=== PATIENT | female | born 1980 | race Caucasian/White ===

== ENCOUNTER → 2019-06-15 08:05 | Outpatient (CLI) | payer OTHER, SELFPAY ==
--- NOTE | 2019-06-15 | DI.MG.S_ITS ---
BILATERAL DIGITAL SCREENING MAMMOGRAM 3D/2D WITH CAD: 06/15/2019 CLINICAL: Baseline exam. Routine screening. No prior exams were available for comparison. The tissue of both breasts is heterogeneously dense. This may lower the sensitivity of mammography. Current study was also evaluated with a Computer Aided Detection (CAD) system. There is a benign intramammary node in the right breast. No significant masses, calcifications, or other findings are seen in either breast. IMPRESSION: There is no mammographic evidence of malignancy. A 1 year screening mammogram is recommended. This exam was interpreted at Station ID: [id number]. NOTE: For mammograms, a report in lay terms will be sent to the patient. Approximately 15% of breast malignancies will not be visualized mammographically. In the management of a palpable breast mass, a negative mammogram must not discourage biopsy of a clinically suspicious lesion. Electronically Signed By: John brown/leonides:06/15/2019 08:35:32 letter sent: Normal Exam ACR BI-RADS Category 2: Benign Finding(s) 3342F
== END ==
PROVIDERS: PCP Family Medicine; Visit Provider Family Medicine
DX: Z12.31 Encounter for screening mammogram for malignant neoplasm of breast (principal)
CPT/HCPCS: 77063; 77067

== ENCOUNTER 2019-09-28 19:44 | Emergency (ER) | payer OTHER, SELFPAY ==
[2019-09-28 20:01] VITALS: BP 154/94; PULSE 87; RESP 20; TEMP 36; O2SAT 99
--- NOTE | 2019-09-28 20:09 | DI.RAD.S_ITS ---
PROCEDURE: XR ANKLE RT MIN 3V INDICATIONS: rolled ankle TECHNIQUE: 3 views of the ankle were acquired. COMPARISON: None. FINDINGS: Bones: Acute oblique fracture through distal fibular shaft is seen with up to 2 mm diastases and fracture site.. Ankle mortise is normally aligned. No suspicious bony lesions. Soft tissues: Marked soft tissue swelling over lateral malleolus is seen. No tibiotalar joint effusion. Achilles tendon appears normal. IMPRESSION: Acute oblique fracture through distal fibular shaft with overlying soft tissue swelling. Ankle mortise is congruent. Dictated by: Perez Loco M.D. on 09/28/2019 at 20:23 Approved by: Perez Loco M.D. on 09/28/2019 at 20:29
[2019-09-28] MEDS: MORPHINE 4 MG/ML INJ IM (20:35)
[2019-09-28] MEDS: ONDANSETRON 4 MG ODT SL (21:18)
--- NOTE | 2019-09-28 21:26 | ED.LOWEXIN ---
HPI - Extremity Injury (Lower) General Chief Complaint: Extremity Injury, Lower Stated Complaint: rolled right ankle Time Seen by Provider: 09/28/19 21:26 Source: patient Mode of arrival: Ambulatory Limitations: no limitations History of Present Illness HPI Narrative: 39-year-old female comes to the emergency department with complaint of pain in her right ankle. Patient states she stepped down she was distracted and not looking. And had pain in her right ankle. She did fall forward but denies any other injuries. Patient states she has pain on the lateral or outside of her ankle. Some swelling and bruising. Denies any numbness tingling or weakness. She does have pain with any attempt at weight-bearing. She denies any medical issues besides 5 prior C-sections. Denies any allergies to medications. No tobacco, no regular alcohol or illicit. Related Data Previous Rx's Medication Instructions Recorded sumatriptan succinate 50 mg tablet 50 mg PO ONCE PRN #30 tab 07/05/19 ondansetron HCl [Zofran] 4 mg PO Q6H PRN #20 tab 09/28/19 oxycodone-acetaminophen [Percocet] 1 tab PO Q6H PRN #20 tab 09/28/19 Allergies Allergy/AdvReac Type Severity Reaction Status Date / Time adhesive Allergy Severe EXTENSIVE Verified 06/09/19 08:31 BLISTERING, RASH chlorhexidine Allergy Severe RASH Verified 06/09/19 08:31 Review of Systems Review of Systems ROS Unobtainable: All systems reviewed & are unremarkable except as noted in HPI and below Patient History Medical History Migraines (Chronic ~2017) Surgical History Anesthesia (Resolved) History of cholecystectomy (Resolved ~05/2016) History of third molar tooth extraction Status post delivery Status post delivery (11/10/14) Status post dilation and curettage (~2003) Social History marital status: number of children: 5 household members: family lives independently: Yes education level: college (Bachelor's Degree) occupational status: unemployed Smoking Status: Never smoker alcohol intake: current (rare, Holidays) substance use type: does not use Smoking Status: Never smoker Exam Narrative Exam Narrative: GENERAL: Alert and oriented x three, well-nourished, well-appearing female in moderate distress. HEENT: Head normocephalic, atraumatic, EOMI, pupils reactive, face symmetric, moist mucous membranes NECK: Supple, full range of motion CARDIOVASCULAR: Regular rate and rhythm without murmurs, rubs or gallops. RESPIRATORY: Breath sounds equal bilaterally, no wheezes rales or rhonchi. ABDOMEN: Soft, nontender. Normoactive bowel sounds all 4 quadrants. No guarding or rebound, rigidity, no mass EXTREMITIES: Decreased range of motion of the right ankle patient has tenderness over the lateral malleoli with ecchymosis, and mild deformity. Patient has normal sensation throughout her foot. No bony tenderness of the foot itself her toes. No bony tenderness of the upper leg. 2+ dorsalis pedis. No clubbing or edema. Neurovascularly intact NEUROLOGICAL: Cranial nerves II through XII grossly intact. Moving all extremities SKIN: Warm, dry, no petechiae, no rashes or lesions. Initial Vital Signs Initial Vital Signs: Vital Signs Temperature 96.8 F L 09/28/19 20:01 Pulse Rate 87 09/28/19 20:01 Respiratory Rate 20 09/28/19 20:01 Blood Pressure 154/94 H 09/28/19 20:01 Pulse Oximetry 99 09/28/19 20:01 Course Orders Ordered: ED Orders 09/28/19 20:09 XR ankle RT min 3V Stat Discontinued Medications Hydromorphone HCl (Dilaudid) 0.5 mg IM NOW ONE Stop: 09/28/19 21:39 Last Admin: 09/28/19 22:10 Dose: 0.5 mg Documented by: MURIEL Morphine Sulfate (Morphine) 4 mg IM NOW ONE Stop: 09/28/19 22:17 Last Admin: 09/28/19 20:35 Dose: 4 mg Documented by: CASTILLO Ondansetron HCl (Zofran Odt) 4 mg SL NOW ONE Stop: 09/28/19 20:30 Last Admin: 09/28/19 21:18 Dose: 4 mg Documented by: CASTILLO Ondansetron HCl (Zofran Odt) 4 mg SL NOW ONE Stop: 09/28/19 21:39 Last Admin: 09/28/19 23:20 Dose: Not Given Documented by: FEDERICO Ondansetron HCl (Zofran Odt Prepack) 1 bottle MISC SEEINSTR ONE Stop: 09/28/19 22:25 Oxycodone/Acetaminophen (Endocet 5/325 Prepack) 1 bottle MISC SEEINSTR ONE Stop: 09/28/19 22:25 Last Admin: 09/28/19 23:21 Dose: 1 bottle Documented by: FEDERICO Vital Signs Vital signs: Vital Signs - 8 hr 09/28/19 23:29 Pulse Rate 89 Respiratory Rate 18 Blood Pressure 147/74 H Pulse Oximetry 97 MDM - Extremity Injury (Lower) Imaging Data right ankle xray: Radiologist's Impression: [address] [address] XRay Report Signed Patient: Ruth Hernandes [facility]#: [id number] : 1980Acct:[id number] Age/Sex: 39 / FDate of Service: 09/28/19 Loc: ED Accession Number: [id number] Procedure: XR ankle RT min 3V Ordering Provider: Gogo Freeman D.O. PROCEDURE: XR ANKLE RT MIN 3V INDICATIONS: rolled ankle TECHNIQUE: 3 views of the ankle were acquired. COMPARISON: None. FINDINGS: Bones: Acute oblique fracture through distal fibular shaft is seen with up to 2 mm diastases and fracture site.. Ankle mortise is normally aligned. No suspicious bony lesions. Soft tissues: Marked soft tissue swelling over lateral malleolus is seen. No tibiotalar joint effusion. Achilles tendon appears normal. IMPRESSION: Acute oblique fracture through distal fibular shaft with overlying soft tissue swelling. Ankle mortise is congruent. Dictated by: Perez Loco M.D. on 09/28/2019 at 20:23 Approved by: Perez Loco M.D. on 09/28/2019 at 20:29 [facility] Narrative Medical decision making narrative: Spoke with Dr. Coates, plan for splint and follow-up with Orthopedic surgery. Splint was placed by nursing and patient is neurovascularly intact afterwards. Discharge Plan Departure Patient Disposition: Home Clinical Impression: Closed fibular fracture Qualifiers: Encounter type: initial encounter Fibula location: distal Fracture morphology: unspecified fracture morphology Laterality: right Qualified Code(s): S82.831A - Other fracture of upper and lower end of right fibula, initial encounter for closed fracture Discharge Date/Time: 09/28/19 23:29 Instructions: DI for Ankle Fracture Activity Restrictions/Additional Instructions: Follow-up with Orthopedic surgery, call tomorrow morning for an appointment. Take pain medication as prescribed, this medication can make you sleepy do not drive, perform hazardous activities or make any major decisions while taking it. Take a stool softener while taking narcotic pain medication. Use Zofran sublingually 1 tablet every 6 hours as needed for nausea. I would recommend taking 15-20 minutes prior to pain medication. Prescription sent to [facility] You may weightbear with toe-touch as tolerated. Use crutches. Splint Care: Keep splint clean and dry. Elevated affected body part to decrease swelling. OK to use ice pack on the affected body part. Use for 15-20 minutes each time, for 5-6x per day. If you develop worsening pain, numbness, tingling, discoloration of the affected body part, loosen the splint by loosening the JIMBO wrap, and either see your doctor for an urgent re-assessment, or return to the Emergency Department. Return to the Emergency Department for any new or worsening symptoms. Prescriptions: New oxycodone-acetaminophen [Percocet] 5-325 mg tablet 1 tab PO Q6H PRN (Reason: pain) Qty: 20 RF: 0 ondansetron HCl [Zofran] 4 mg tablet 4 mg PO Q6H PRN (Reason: nausea and vomiting) Qty: 20 RF: 0 No Action sumatriptan succinate [Imitrex] 50 mg tablet 50 mg PO ONCE PRN (Reason: migraine headache) Qty: 30 RF: 0 Referrals: Jadyn Duffy DO [Primary Care Provider] - Kenney Coates MD [Physician] -
[2019-09-28] MEDS: HYDROMORPHONE 1 MG INJ 0.5 MG IM (22:10)
[2019-09-28] MEDS: OXYCODONE/APAP 5/325 PREPACK 1 BOTTLE MISC (23:21)
[2019-09-28 23:29] VITALS: BP 147/74; PULSE 89; RESP 18; O2SAT 97
== END 2019-09-28 23:29 | disposition home or self-care (01) ==
PROVIDERS: Emergency Provider Emergency Medicine; PCP Family Medicine
DX: S82.831A Other fracture of upper and lower end of right fibula, initial encounter for closed fracture (principal)
CPT/HCPCS: 29515; 73610; 96372; 99283; 99284; J1170; J2270

== ENCOUNTER → 2020-08-08 10:03 | Outpatient (CLI) | payer OTHER, SELFPAY ==
[2020-08-08 11:00] LABS: Add Manual Diff / Slide Review NO; Basophils Absolute Auto 0 /uL (0-100); Basophils Percent Auto 0.5 % (0-2); Eosinophils Absolute Auto 100 /uL (0-450); Eosinophils Percent Auto 1.9 % (2-4); Hematocrit 43.1 % (36-46); Hemoglobin 14.6 g/dL (12.0-16.0); Lymphocytes Absolute Auto 2900 /uL (1100-4500); Lymphocytes Percent Auto 38.1 % (25-40); Mean Corpuscular HGB Conc 33.9 % (30-36); Mean Corpuscular Hemoglobin 29.3 PG (26-34); Mean Corpuscular Volume 86.6 fL (80-100); Monocytes Absolute Auto 600 /uL (0-900); Monocytes Percent Auto 7.5 % (3-14); Neutrophils Absolute Auto 3900 /uL (1500-7000); Platelet Count 295 X10^3/uL (150-400); Red Blood Cell Count 4.97 X10^6/uL (4.0-5.2); Red Cell Distribution Width 13.1 % (11.6-14.8); White Blood Cell Count 7.5 X10^3/uL (4.5-11.0)
[2020-08-08 11:09] LABS: Alanine Aminotransferase 29 IU/L (<35); Albumin 4.5 g/dL (3.5-5.0); Albumin Globulin Ratio 1.4 (1.0-2.8); Alkaline Phosphatase 79 U/L (38-126); Aspartate Aminotransferase 28 IU/L (14-36); BUN Creatinine Ratio 24.6 (6-22); Bilirubin Total 0.4 mg/dL (0.2-1.3); Blood Urea Nitrogen 15 mg/dL (7-17); Carbon Dioxide 29 mmol/L (22-32); Chloride 101 mmol/L (98-107); Cholesterol 250 mg/dL (140-199); Estimated Glomerular Filt Rate > 60.0 mL/min (>60); Globulin 3.2 g/dL (1.7-4.1); Glucose 90 mg/dL (70-100); HDL Cholesterol 60 mg/dL (40-60); HEMOLYSIS 17 (0-50); LDL Cholesterol Calculated 172 mg/dL (<100); Potassium 4.2 mmol/L (3.4-5.1); Sodium 134 mmol/L (137-145); Total Protein 7.7 g/dL (6.3-8.2); Triglycerides 92 mg/dL (35-150)
== END ==
PROVIDERS: PCP Family Medicine; Referring Provider Family Medicine; Visit Provider Family Medicine
DX: E66.9 Obesity, unspecified (principal); I10 Essential (primary) hypertension; Z13.220 Encounter for screening for lipoid disorders
CPT/HCPCS: 36415; 80053; 80061; 85025

== ENCOUNTER → 2020-10-09 07:42 | Outpatient (CLI) | payer OTHER, SELFPAY ==
[2020-10-09] MEDS: COVID-19 VACC #1, MRNA(MOD) 100 MCG/0.5 ML VIAL IM (07:47)
== END ==
PROVIDERS: PCP Family Medicine; Visit Provider Internal Medicine
DX: Z23 Encounter for immunization (principal)
CPT/HCPCS: 0011A; 91301

== ENCOUNTER → 2020-11-07 07:36 | Outpatient (CLI) | payer OTHER, SELFPAY ==
[2020-11-07] MEDS: COVID-19 VACC #2, MRNA(MOD) 100 MCG/0.5 ML VIAL IM (07:51)
== END ==
PROVIDERS: PCP Family Medicine; Visit Provider Internal Medicine
DX: Z23 Encounter for immunization (principal)
CPT/HCPCS: 0012A; 91301

== ENCOUNTER → 2022-03-11 10:55 | Outpatient (CLI) | payer OTHER, SELFPAY ==
--- NOTE | 2022-03-11 | DI.MG.S_ITS ---
BILATERAL DIGITAL SCREENING MAMMOGRAM 3D/2D WITH CAD: 03/11/2022 CLINICAL: Routine screening. Comparison is made to exam dated: 06/15/2019 mammogram - [facility]. There are scattered fibroglandular elements in both breasts. Current study was also evaluated with a Computer Aided Detection (CAD) system. No significant masses, calcifications, or other findings are seen in either breast. There has been no significant interval change. IMPRESSION: NEGATIVE There is no mammographic evidence of malignancy. A 1 year screening mammogram is recommended. Based on the Tyrer Cuzick model (a risk assessment model) the patient's lifetime risk is 8.5% and her 10 year risk is 1.2%. According to the ACR, ACS, and NCCN guidelines, an annual breast MRI exam along with mammogram is recommended if the patient's lifetime risk is 20% or greater. This exam was interpreted at Station ID: [id number]. NOTE: For mammograms, a report in lay terms will be sent to the patient. Approximately 15% of breast malignancies will not be visualized mammographically. In the management of a palpable breast mass, a negative mammogram must not discourage biopsy of a clinically suspicious lesion. Electronically Signed By: Rolando penaloza/leonides:03/11/2022 13:41:00 letter sent: Normal Exam ACR BI-RADS Category 1: Negative 3341F
== END ==
PROVIDERS: PCP Family Medicine; Referring Provider Family Medicine; Visit Provider Family Medicine
DX: Z12.31 Encounter for screening mammogram for malignant neoplasm of breast (principal)
CPT/HCPCS: 77063; 77067

== ENCOUNTER → 2022-04-30 08:46 | Outpatient (CLI) | payer OTHER, SELFPAY ==
[2022-04-30 10:27] LABS: Alanine Aminotransferase 29 IU/L (<35); Albumin 4.4 g/dL (3.5-5.0); Albumin Globulin Ratio 1.5 (1.0-2.8); Alkaline Phosphatase 79 U/L (38-126); Aspartate Aminotransferase 29 IU/L (14-36); BUN Creatinine Ratio 19.4 (6-22); Bilirubin Total 0.4 mg/dL (0.2-1.3); Blood Urea Nitrogen 14 mg/dL (7-17); Carbon Dioxide 27 mmol/L (22-32); Chloride 101 mmol/L (98-107); Cholesterol 227 mg/dL (140-199); Estimated Glomerular Filt Rate > 60 mL/min (>60); Globulin 2.9 g/dL (1.7-4.1); Glucose 89 mg/dL (70-100); HDL Cholesterol 55 mg/dL (40-60); HEMOLYSIS < 15 (0-50); LDL Cholesterol Calculated 155 mg/dL (<100); Potassium 4.9 mmol/L (3.4-5.1); Sodium 138 mmol/L (137-145); Total Protein 7.3 g/dL (6.3-8.2); Triglycerides 83 mg/dL (35-150)
== END ==
PROVIDERS: PCP Family Medicine; Referring Provider Family Medicine; Visit Provider Family Medicine
DX: E66.9 Obesity, unspecified (principal); E78.5 Hyperlipidemia, unspecified
CPT/HCPCS: 36415; 80053; 80061

== ENCOUNTER → 2024-04-15 10:00 | Outpatient (CLI) | payer OTHER, SELFPAY ==
[2024-04-15 10:53] LABS: Add Manual Diff / Slide Review NO; Basophils Absolute Auto 100 /uL (0-100); Basophils Percent Auto 0.6 % (0-2); Eosinophils Absolute Auto 200 /uL (0-450); Eosinophils Percent Auto 2.4 % (2-4); Hematocrit 41.1 % (36-46); Hemoglobin 13.8 g/dL (12.0-16.0); Lymphocytes Absolute Auto 2500 /uL (1100-4500); Lymphocytes Percent Auto 30.8 % (25-40); Mean Corpuscular HGB Conc 33.5 % (30-36); Mean Corpuscular Hemoglobin 28.6 PG (26-34); Mean Corpuscular Volume 85.3 fL (80-100); Monocytes Absolute Auto 600 /uL (0-900); Monocytes Percent Auto 7.6 % (3-14); Neutrophils Absolute Auto 4800 /uL (1500-7000); Neutrophils Percent Auto 58.6 % (50-75); Platelet Count 346 X10^3/uL (150-400); Red Blood Cell Count 4.82 X10^6/uL (4.0-5.2); White Blood Cell Count 8.2 X10^3/uL (4.5-11.0)
[2024-04-15 11:37] LABS: Vitamin D 25 Hydroxy (D3) 42.3 ng/mL (30.0-100.0)
[2024-04-15 11:52] LABS: TSH w/ Reflex to FT4 1.67 uIU/mL (0.47-4.68)
[2024-04-15 11:58] LABS: Protein (Total) Urine Random 14 mg/dL (0-12)
[2024-04-15 12:02] LABS: Creatinine Urine Random 13.63 mg/dL; Protein Creatinine Ratio Urine 1.02 GRAM/24H
[2024-04-15 12:50] LABS: Alanine Aminotransferase 29 IU/L (<35); Albumin 4.4 g/dL (3.5-5.0); Albumin Globulin Ratio 1.4 (1.0-2.8); Alkaline Phosphatase 102 U/L (38-126); Aspartate Aminotransferase 29 IU/L (14-36); BUN Creatinine Ratio 18.5 (6-22); Bilirubin Total 0.6 mg/dL (0.2-1.3); Blood Urea Nitrogen 12 mg/dL (7-17); Calcium 9.1 mg/dL (8.4-10.2); Carbon Dioxide 24 mmol/L (22-32); Chloride 102 mmol/L (98-107); Cholesterol 249 mg/dL (140-199); Estimated Glomerular Filt Rate > 60 mL/min (>60); Globulin 3.2 g/dL (1.7-4.1); Glucose 93 mg/dL (70-100); HDL Cholesterol 52 mg/dL (40-60); HEMOLYSIS < 15 (0-50); LDL Cholesterol Calculated 182 mg/dL (<100); Potassium 4.1 mmol/L (3.4-5.1); Sodium 135 mmol/L (137-145); Total Protein 7.6 g/dL (6.3-8.2); Triglycerides 75 mg/dL (35-150)
[2024-04-15 12:55] LABS: High Sensitivity CRP - Cardiac 8.8 mg/L (1.0-3.0)
[2024-04-15 13:08] LABS: Hemoglobin A1C% w Est Avg Glu 5.1 % (4.0-6.0)
[2024-04-16 08:36] LABS: Insulin Level Total 15.8 uIU/mL (2.6-24.9)
[2024-04-18 12:10] LABS: Fecal Immunochemical Test Negative (Negative)
== END ==
PROVIDERS: PCP Family Medicine; Referring Provider Family Medicine; Visit Provider Family Medicine
DX: E78.5 Hyperlipidemia, unspecified (principal); E66.9 Obesity, unspecified; I10 Essential (primary) hypertension; N95.1 Menopausal and female climacteric states; R73.09 Other abnormal glucose; R53.83 Other fatigue; E55.9 Vitamin D deficiency, unspecified
CPT/HCPCS: 36415; 80053; 80061; 82274; 82306; 82570; 83036; 83525; 84156; 84443; 85025; 86140

== ENCOUNTER → 2025-06-29 07:12 | Outpatient (CLI) | payer OTHER, SELFPAY ==
[2025-06-29 08:09] LABS: Alanine Aminotransferase 25 IU/L (<35); Albumin 4.4 g/dL (3.5-5.0); Albumin Globulin Ratio 1.6 (1.0-2.8); Alkaline Phosphatase 88 U/L (38-126); Blood Urea Nitrogen 15 mg/dL (7-17); Calcium 9.4 mg/dL (8.4-10.2); Carbon Dioxide 27 mmol/L (22-32); Chloride 101 mmol/L (98-107); Cholesterol 235 mg/dL (140-199); Estimated Glomerular Filt Rate > 60 mL/min (>60); Globulin 2.8 g/dL (1.7-4.1); Glucose 104 mg/dL (70-99); HDL Cholesterol 60 mg/dL (40-60); HEMOLYSIS < 15 (0-50); Potassium 4.4 mmol/L (3.4-5.1); Sodium 138 mmol/L (137-145); Total Protein 7.2 g/dL (6.3-8.2); Triglycerides 123 mg/dL (35-150)
[2025-06-29 08:24] LABS: Protein (Total) Urine Random 7 mg/dL (0-12); Protein Creatinine Ratio Urine 0.02 GRAM/24H
[2025-06-30 07:09] LABS: CRP, High Sensitivity 5.33 mg/L (0.00-3.00)
== END ==
PROVIDERS: PCP Family Medicine; Referring Provider Family Medicine; Visit Provider Family Medicine
DX: Z00.01 Encounter for general adult medical examination with abnormal findings (principal); R79.82 Elevated C-reactive protein (CRP); E66.01 Morbid (severe) obesity due to excess calories; E78.2 Mixed hyperlipidemia; I10 Essential (primary) hypertension
CPT/HCPCS: 36415; 80053; 80061; 82570; 84156; 86140